=== PATIENT | female | born 1995 | race Caucasian/White ===

== ENCOUNTER 2017-09-29 11:26 | Emergency (ER) | payer BC ==
--- NOTE | 2017-09-29 14:32 | UC ---
Throat Pain/Nasal Tad HPI - HPI Summary HPI Summary: 22 y/o female presents to the urgent care c/o sore throat, body aches, nasal congestion and fever since last night. Pt states she took Ibuprofen PO about 1/ 2 hr ago to alleviate symptoms. Pt denies cough, SOB, chest pain, N/V/D, abdominal pain, Hx of STD's. Hx of tick bites or rash. - History of Current Complaint Stated Complaint: SORE THROAT BODY ACHES HEADACHE Time Seen by Provider: 09/29/17 14:30 Hx Obtained From: Patient Hx Last Menstrual Period: 09/02/2017 ?: No Onset/Duration: Gradual Onset, Lasting Days - 2 days, Still Present Severity: Moderate Pain Intensity: 7 Pain Scale Used: 0-10 Numeric Cough: None Associated Signs & Symptoms: Positive: Dysphagia, Nasal Discharge, Fever - Epiglottits Risk Factors Epiglottis Risk Factors: Negative - Allergies/Home Medications Allergies/Adverse Reactions: Allergies Allergy/AdvReac Type Severity Reaction Status Date / Time seasonal Allergy Congestion Uncoded 09/29/17 14:33 Home Medications: Home Medications Albuterol HFA INHALER* [Ventolin HFA Inhaler*] 2 puff INH Q4H PRN 09/29/17 [ History Confirmed 09/29/17] Norethindrone/Eth Est .04/10NF [Junel .04/10 (NF)] 1 tab PO QPM 09/29/17 [ History Confirmed 09/29/17] PMH/Surg Hx/FS Hx/Imm Hx Previously Healthy: Yes Respiratory History: Asthma - Family History Known Family History: Positive: Hypertension Family History: Thyroid cancer - Social History Occupation: Employed Full-time Lives: With Family Review of Systems Constitutional: Fever Skin: Negative Eyes: Negative ENT: Sore Throat, Nasal Discharge Respiratory: Negative Cardiovascular: Negative Gastrointestinal: Negative Genitourinary: Negative Motor: Negative Neurovascular: Negative Musculoskeletal: Negative Neurological: Negative Psychological: Negative Is Patient Immunocompromised?: No All Other Systems Reviewed And Are Negative: Yes Physical Exam Triage Information Reviewed: Yes - Additional Comments VITAL SIGNS: Reviewed. GENERAL: Patient is a well developed and nourished female who is sitting comfortable in the examining table. Patient is not in any acute respiratory distress. HEAD AND FACE: No signs of trauma. No ecchymosis, hematomas or skull depressions. No sinus tenderness. EYES: PERRLA, EOMI x 2, No injected conjunctiva, no nystagmus. No photophobia. EARS: Hearing grossly intact. Ear canals and tympanic membranes are within normal limits. MOUTH: Positive pharynx with erythema, exudates, palatal petechiae. B/L tonsillar enlargement with exudate. Uvula in midline. NECK: Supple, trachea is midline, Positive anterior cervical lymphadenopathy, no JVD, no carotid bruit, no c-spine tenderness, neck with full ROM. No meningeal signs, no Kernig's or brudzinskis signs. CHEST: Symmetric, no tenderness at palpation LUNGS: Clear to auscultation bilaterally. No wheezing or crackles. CVS: Regular rate and rhythm, S1 and S2 present, no murmurs or gallops appreciated. ABDOMEN: Soft, non-tender. No signs of distention. No rebound no guarding, and no masses palpated. Bowel sounds are normal. EXTREMITIES: FROM in all major joints, no edema, no cyanosis or clubbing. NEURO: Alert and oriented x 3. No acute neurological deficits. Speech is normal and follows commands. SKIN: Dry and warm Throat Pain/Nasal Course/Dx - Course Course Of Treatment: 22 y/o female presents to the urgent care c/o sore throat, body aches, nasal congestion and fever since last night. Pt states she took Ibuprofen PO about 1/2 hr ago to alleviate symptoms. Pt denies cough, SOB, chest pain, N/V/D, abdominal pain, Hx of STD's. Hx of tick bites or rash. Hx obtained. Pt with pharyngitis on examination. Rapid strep ordered: result: positive. Strep pharyngitis. Pt with Temp: 100.9F, Pt took Ibuprofen PO recently. Rx Amoxicillin PO and Ibuprofen PO for fever, pain and swelling. PT Advised on hand washing to avoid spreading. Also advised to rest, eat well and avoid strenuous exercise. If symptoms do not improve or worsen advised to return to the urgent care or f/u with her PCP for further evaluation and treatment. PT understood and agreed with plan of care - Differential Dx/Diagnosis Differential Diagnosis/HQI/PQRI: Influenza, Laryngitis, Mononucleosis, Otitis Media, Pharyngitis, Sinusitis, Tonsillitis, URI Provider Diagnoses: 1- Strep pharyngitis. 2-fever Discharge - Discharge Plan Condition: Stable Disposition: HOME Prescriptions: Amoxicillin PO (*) [Amoxicillin 875 MG (*)] 875 mg PO BID #20 tab Ibuprofen TAB* [Motrin TAB* 600 MG] 600 mg PO Q6H PRN #20 tab PRN Reason: Fever Patient Education Materials: Strep Throat (ED) Referrals: [facility] [Outside] - If Needed Additional Instructions: 1- Please take the full course of the antibiotic to avoid resistance. 2-Please take ibuprofen PO q6-8hrs prn as instructed after meals to alleviate pain and swelling. Increase fluid intake, eat well, rest and avoid strenuous exercise 3-If symptoms do not improve or worsen please return to the urgent care or f/u with your PCP for further evaluation and treatment.
[2017-09-29 14:33] VITALS: BP 139/61
== END 2017-09-29 15:31 | disposition home or self-care (01) ==
LOC: UCCORT 11:26
DX: J02.0 Streptococcal pharyngitis (principal); R50.9 Fever, unspecified; J45.909 Unspecified asthma, uncomplicated
CPT/HCPCS: 87502; 87651; 99202; G0463

== ENCOUNTER 2017-12-23 09:28 | Emergency (ER) | payer BC ==
[2017-12-23 11:57] VITALS: BP 114/73
--- NOTE | 2017-12-23 12:22 | UC ---
FLU HPI - HPI Summary HPI Summary: Fever, myalgias, headache starting yesterday. She has had a fever as well. No chronic medial conditions. Excersize induced asthma alone. 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 She is not around infants or elderly at home. - History of Current Complaint Chief Complaint: UCRespiratory Stated Complaint: FLU SYMP Time Seen by Provider: 12/23/17 12:03 Hx Obtained From: Patient Hx Last Menstrual Period: 12/02/17 Onset/Duration: Gradual Onset, Lasting Days Severity Currently: Moderate Severity Initially: Moderate Pain Intensity: 0 Associated Signs & Symptoms: Positive: Fever, Myalgia, Headache - Allergy/Home Medications Allergies/Adverse Reactions: Allergies Allergy/AdvReac Type Severity Reaction Status Date / Time seasonal Allergy Congestion Uncoded 12/23/17 11:49 PMH/Surg Hx/FS Hx/Imm Hx Previously Healthy: No - excersize induced asthma. - Surgical History Surgical History: None - Family History Known Family History: Positive: Hypertension Family History: Thyroid cancer - Social History Occupation: Employed Full-time Alcohol Use: None Substance Use Type: None Smoking Status (MU): Never Smoked Tobacco Review of Systems Constitutional: Fever Neurological: Headache All Other Systems Reviewed And Are Negative: Yes Physical Exam Triage Information Reviewed: Yes Appearance: Well-Appearing, No Pain Distress, Well-Nourished Vital Signs: Initial Vital Signs Temp 98.8 F 12/23/17 11:50 Pulse 89 12/23/17 11:50 Resp 16 12/23/17 11:50 BP 114/73 12/23/17 11:50 Pulse Ox 100 12/23/17 11:50 Vital Signs Reviewed: Yes Eyes: Positive: Conjunctiva Clear ENT: Positive: Normal ENT inspection, Pharynx normal, TMs normal, Uvula midline Neck: Positive: Supple, Nontender, No Lymphadenopathy Respiratory: Positive: Lungs clear, Normal breath sounds, No respiratory distress, No accessory muscle use. Negative: Respiratory distress, Decreased breath sounds, Accessory muscle use, Crackles, Rhonchi, Stridor Cardiovascular: Positive: No Murmur, Pulses Normal, Brisk Capillary Refill Abdomen Description: Positive: No Organomegaly, Soft. Negative: Distended, Guarding Musculoskeletal: Positive: ROM Intact, No Edema Neurological: Positive: Alert, Muscle Tone Normal. Negative: Fatigued Psychological: Positive: Age Appropriate Behavior Skin: Negative: rashes Flu Course/Dx - Course Course Of Treatment: flu like illness. She is low risk for complications. She denies any chance of and LMP is Keegan 21. Supportive care. note for work. - Differential Dx/Diagnosis Provider Diagnoses: influenza Discharge - Discharge Plan Condition: Good Disposition: HOME Patient Education Materials: Influenza (DC) Forms: *Work Release Referrals: Non Staff,Doctor [Primary Care Provider] - Additional Instructions: REturn for any worsening symptoms or any symptoms of sinus/ear infection or pneumonia as we discussed.
== END 2017-12-23 12:24 | disposition home or self-care (01) ==
LOC: UCCORT 09:28
DX: J09.X2 Influenza due to identified novel influenza A virus with other respiratory manifestations (principal); Z20.828 Contact with and (suspected) exposure to other viral communicable diseases; J45.990 Exercise induced bronchospasm
CPT/HCPCS: 87502; 99211; G0463